=== PATIENT | female | born 1965 | race Caucasian/White ===

== ENCOUNTER 2020-09-15 02:49 | Inpatient (IN) | payer OTHER ==
[~2020-09-15] VITALS: Ht 160 cm; Wt 74.8 kg
== END 2020-09-22 19:33 | disposition home or self-care (01) | DRG 641 ==
LOC: ER 02:49 → MEDI 18:32
PROVIDERS: ADMIT Internal Medicine; ATTEND Internal Medicine
PROC: BW21YZZ Computerized Tomography (CT Scan) of Abdomen and Pelvis using Other Contrast (ICD-10-PCS; principal; 2020-09-15)
DX: E86.0 Dehydration (principal); K57.32 Diverticulitis of large intestine without perforation or abscess without bleeding; K40.90 Unilateral inguinal hernia, without obstruction or gangrene, not specified as recurrent

== ENCOUNTER 2021-07-21 18:23 | Inpatient (IN) | payer OTHER ==
[~2021-07-21] VITALS: Ht 165.1 cm; Wt 68.0 kg
[2021-07-21] MEDS ORDERED: ATORVASTATIN CA10 MG PO (18:40)
--- NOTE | 2021-07-21 18:40 | NUR ---
SE RECIBE PTE FEMENINA ALERTA Y ORIENTADA EN LAS DOV ESFERAS REFIERE DOLOR ABDOMINAL DESDE HOY AL MEDIODIA.
--- NOTE | 2021-07-21 20:39 | NUR ---
PTE FEMENINA ALERTA Y ORIENTADA ES EVALUADA POR . SE ORIENTA SOBRE ORDENES DE TX REFIERE ENTENDER. SE CANALIZA VENA Y SE COLECTAN MUESTRAS DE LABORATORIO, BAJO MEDIDAS ASEPTICAS. SE ADMNISTRA MEDICAMENTO, BAJO MEDIDAS ASEPTICAS. SE NOTIFICA A RADIOLOGIA PARA CT.
--- NOTE | 2021-07-21 23:33 | NUR ---
PTE ALERTA Y ORIENTADA X 3 ESFERAS EN EDGAR CON BARANDAS ELEVADAS,SIN FAMILIAR AL MOMENTO DE LA JOSE,NO REFIERE DOLOR AL MOMENTO.AREA DE VENOPUNCION PATENTE Y KRISTA DE EDEMA CON ANTIBIOTICOS BAJANDO.PENDIENTE A EVALUACION DE .
--- NOTE | 2021-07-22 07:19 | NUR ---
SE RECIBE PTE ALERTA Y CONCIENTE POR 3 EN EL CUBICULO #12 PTE NO PRESENTA DOLOR AL MOMENTO SE OBSERVA VENOPUNCION PATENTE Y KRISTA DE EDEMA PTE EN ESPRA DE DR VANESSA PASTOR PTE SE MANTIENE EN OBSERVACION Y BAJO TRATAMIENTO
[2021-07-22] MEDS ORDERED: PROGESTERONE200 MG (13:07)
[2021-07-22] MEDS ORDERED: ATORVASTATIN CA20 MG (13:07)
[2021-07-22] MEDS ORDERED: FAMOTIDINE40 MG (13:07)
[2021-07-25] MEDS ORDERED: PEPCID AC20 MG PO (19:29)
[2021-07-25] MEDS ORDERED: INTESTINEX680 M1 PO (19:29)
[2021-07-25] MEDS ORDERED: FLAGYL500MG PO (19:29)
[2021-07-25] MEDS ORDERED: Lipitor 10MG TABLET PO (19:29)
[2021-07-25] MEDS ORDERED: CIPRO500 MG PO (19:29)
== END 2021-07-25 22:14 | disposition home or self-care (01) | DRG 392 ==
LOC: ER 18:23 → SEC-K 07-22 11:46 → SURH 07-22 16:57
PROVIDERS: ADMIT Internal Medicine; ATTEND Internal Medicine
DX: K57.32 Diverticulitis of large intestine without perforation or abscess without bleeding (principal); K40.90 Unilateral inguinal hernia, without obstruction or gangrene, not specified as recurrent; E86.0 Dehydration; E87.8 Other disorders of electrolyte and fluid balance, not elsewhere classified; Z20.822 Contact with and (suspected) exposure to COVID-19

== ENCOUNTER 2022-03-05 10:09 | Inpatient (IN) | payer OTHER ==
[~2022-03-05] VITALS: Ht 160 cm; Wt 70.3 kg
[~2022-03-05 10:09] MED LIST: ATORVASTATIN CA10 MG PO; ATORVASTATIN CA20 MG; CIPRO500 MG PO; FAMOTIDINE40 MG; FLAGYL500MG PO; INTESTINEX680 M1 PO; Lipitor 10MG TABLET PO; PEPCID AC20 MG PO; PROGESTERONE200 MG
[2022-03-05] MEDS ORDERED: NEXIUM40 M1 PO (10:31)
--- NOTE | 2022-03-05 10:37 | NUR ---
SE RECIBE PT FEMENINAN DE 55 ANOS ALERTA Y ORIENTADA X3 QUIEN REFIERE DOLOR ABD INTENSO EN AMBOS CUADRANTES INFERIORES. PT REFIERE NO SER LA PRIMERA VEZ QUE LE DA SAULO TIPO DE DOLOR DEBIDO A QUE PADECE DE DIVERTICULITIS Y GASTRITIS. SE MONITOREAN S/ Y SE UBICA EN EDGAR 12.
--- NOTE | 2022-03-05 12:58 | NUR ---
DR BURTON EVALUA A PTE QUIEN ORDENA TX MEDICO. SE ORIENTA A PTE SOBRE TX Y LA MISMA REFIERE ENTENDER. SE REALIZAN MUESTRAS DE LABORATORIO Y ADMINISTRACION DE MEDICAMENTOS SHINE ORDEN MEDICA BAJO MEDIDAS ASEPTICAS. SE LE PROVEE CONTRASTE PO PARA CT. PTE EN ESPERA DE RESULTADOS.
--- NOTE | 2022-03-05 16:47 | NUR ---
PTE ES REEVALUADA POR SE ORIENTA APTE SOBRE ORDEN MEDICA,SE ADMINISTRA MEDICAMENTO EL CUAL TOLERA.
--- NOTE | 2022-03-05 17:37 | NUR ---
PTE ES REEVALUADA POR A SE ORIENTA APTE SOBRE ORDEN MEDICA,SE ORIENTA APTE SOBRE ORDEN MEDICA,Y SE ADMINISTRAN MEDICAMENTOS LOS CUALES TOLERA.
[2022-03-10] MEDS ORDERED: INTESTINEX680 M1 PO (16:29)
[2022-03-10] MEDS ORDERED: FAMOTIDINE40 MG PO (16:29)
[2022-03-10] MEDS ORDERED: CIPRO500 MG PO (16:29)
[2022-03-10] MEDS ORDERED: METRONIDAZOLE500 MG PO (16:29)
[2022-03-10] MEDS ORDERED: KAOPECTATE240 MG PO (16:29)
== END 2022-03-10 16:55 | disposition home or self-care (01) | DRG 392 ==
LOC: ER 10:09 → MEDI 23:22
PROVIDERS: ADMIT Internal Medicine; ATTEND Internal Medicine
PROC: BW21YZZ Computerized Tomography (CT Scan) of Abdomen and Pelvis using Other Contrast (ICD-10-PCS; principal; 2022-03-05)
DX: K57.32 Diverticulitis of large intestine without perforation or abscess without bleeding (principal); K29.00 Acute gastritis without bleeding; R10.32 Left lower quadrant pain; E78.49 Other hyperlipidemia; Z20.822 Contact with and (suspected) exposure to COVID-19